=== PATIENT | male | born 1960 | race African-American/Black ===

== ENCOUNTER 2017-03-19 18:20 | Emergency (ER) | payer MEDICARE, MEDICAID ==
[~2017-03-19] VITALS: Ht 175.3 cm; Wt 101.6 kg
[2017-03-19] MEDS ORDERED: Tylenol #3 tab (300mg/30mg) PO ONE (19:30)
[2017-03-19] MEDS ORDERED: TRAMADOL HCL50 MG ORAL (20:36)
[2017-03-19 20:38] VITALS: BP 146/82
--- NOTE | 2017-03-20 10:29 | Diagnostic Imaging Report ---
Indication: PAIN Technique: 3 views of the left shoulder Comparison: none Findings: No acute fractures. No dislocations. Joint spaces are preserved. Impression:Negative
--- NOTE | 2017-03-20 12:51 | Diagnostic Imaging Report ---
Indication: PAIN Technique: One view of the chest Comparison: none Findings: Lungs and pleural spaces are clear. Heart size is normal. Impression: No acute process
--- NOTE | 2017-03-20 12:53 | Diagnostic Imaging Report ---
Indication: PAIN Technique: 2 views of the left hip Comparison: None Findings: There is left hip prosthesis. No acute fractures. No dislocations. Well-corticated osseous fragments are seen adjacent to the greater trochanter, may reflect foci of heterotopic ossification Impression: No acute process
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
--- NOTE | 2017-03-20 12:54 | Diagnostic Imaging Report ---
Indication: PAIN Technique: 3 views of the right shoulder Comparison: none Findings: No acute fractures. No dislocations. Joint spaces are preserved Impression:Negative
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
== END 2017-03-19 20:49 | disposition home or self-care (01) ==
LOC: EMR 20:05
DX: S40.012A Contusion of left shoulder, initial encounter (principal); S40.011A Contusion of right shoulder, initial encounter; S70.02XA Contusion of left hip, initial encounter; S70.01XA Contusion of right hip, initial encounter; V53.5XXA Driver of pick-up truck or van injured in collision with car, pick-up truck or van in traffic accident, initial encounter; Y92.410 Unspecified street and highway as the place of occurrence of the external cause; Z96.643 Presence of artificial hip joint, bilateral
CPT/HCPCS: 71010; 73502; 99283